=== PATIENT | male | born 1965 | race Hispanic/Latino ===

== ENCOUNTER 2019-01-12 07:59 | Day surgery (SDC) | payer OTHER ==
[2019-01-12 08:44] LABS: Blood Urea Nitrogen 16 mg/dL (9-20)
[2019-01-12] MEDS ORDERED: LOPRESSOR PO ONE (09:00)
[2019-01-12] MEDS ORDERED: ATROPINE 0.1% (CARDIAC) ONE (09:41)
[2019-01-12] MEDS ORDERED: LOPRESSOR IV ONE (09:42)
[2019-01-12 10:11] VITALS: BP 99/60
[2019-01-12] MEDS ORDERED: NITROSTAT SL ONE (10:30)
--- NOTE | 2019-01-12 11:21 | Cat Scan Report ---
LIMITED CT OF THE CHEST PER CT CORONARY ANGIOGRAPHY PROTOCOL: History: Abnormal TST. Limited CT of the chest per CT coronary angiography protocol is submitted. The cardiac portion of the exam has been previously interpreted by the [employer]st. Right pneumonectomy changes are partially imaged. Small to medium right pleural fluid is noted. The left lung base is well aerated. No nodule, infiltrate or effusion. Limited images of the upper abdomen demonstrate mild diffuse fatty infiltration throughout the liver. IMPRESSION: Right pneumonectomy changes. Unremarkable left lung base. Hepatic steatosis.
--- NOTE | 2019-01-13 12:11 | CT Calcium Scoring Report ---
Coronary Calcium Score Date of service: 01/13/19 Procedure: High-resolution computed tomographic imaging of the chest was performed on01/12/19 with particular attention paid to the coronary arteries. Images from the examination were analyzed for the presence and extent of coronary artery calcification, using coronary calcium quantification software. The patient tolerated the procedure well and there were no complications. The results of the coronary calcification analysis are provided below. The patient scores are compared with published data related to scores for people of a similar age and the same gender. - Findings Left Main Artery: 3.18 Left Anterior Descending Artery: 76.79 Total Agatson Score: 79.87 Percentile Ranking: >75 Findings: Cardiac CTA: Indication: chest pain/equivocal stress test Informed consent: obtained Procedure: per protocol. Images reprocessed at the work station: mpr,mip,vol rendered images viewed. mult phases of card cycle viewed Radiol Overread: per the non cardiac structures Micky score: per Agatston method LV gram: segmentation threshold based approach Interpretation: left lung hyperinflated. heart shifted to the right--s/p right lung resection--defer to radiol overread Ascending and descending aorta, pulmonary artery, ivc and svc in the field of view appear normal in size mild calcification in ascending and descending aorta Left pulmonary veins enter the left atrium appropriately the right pulmonary veins are not seen No intracardiac masses. No pericardial effusion Aortic and mitral valves appear normal Normal lv, rv, la, ra, left atrial appendage Interventricular and interatrial septum both appear normal Cor Angio: normal origins dominant left system small right coronary artery. no significant obstructive disease left main normal circumflex dominant. no signficant obstructive disease left anterior descending/diagonal system: mild non obstructive calcific plaque in the mid left anterior descending coronary artery lv ef greater that 60%. normal wall motion
== END 2019-01-12 08:00 | disposition home or self-care (01) ==
LOC: CATHLABREC 07:59
PROVIDERS: ATTEND Internal Medicine
DX: K76.0 Fatty (change of) liver, not elsewhere classified (principal); R94.39 Abnormal result of other cardiovascular function study; R06.02 Shortness of breath; I70.0 Atherosclerosis of aorta; I25.119 Atherosclerotic heart disease of native coronary artery with unspecified angina pectoris; I10 Essential (primary) hypertension; Z85.118 Personal history of other malignant neoplasm of bronchus and lung; Z79.899 Other long term (current) drug therapy; Z79.01 Long term (current) use of anticoagulants; Z87.891 Personal history of nicotine dependence
CPT/HCPCS: 36415; 75574; 82565; 84520; Q9967; J0461